=== PATIENT | male | born 1940 | race Caucasian/White ===

== ENCOUNTER 2021-01-26 21:07 | Inpatient (IN) ==
[2021-01-26] MEDS ORDERED: *HR* Heparin 5,000 UNIT/ML VIAL IVP PRN ×2 (23:22)
[2021-01-26] MEDS: Heparin 25,000UNIT/250ML 1/2NS 25,000 UNIT/250 ML IV.SOLN IVC SCH (23:46)
[2021-01-26] MEDS ORDERED: methylPREDNISolone 125 MG/2 ML VIAL IVP ONE (23:53)
[2021-01-27] MEDS ORDERED: Naloxone 0.4 MG/ML INJ IVP PRN (00:08)
[2021-01-27] MEDS: Levalbuterol Neb 1.25 MG/3 ML IH SCH ×6 (00:11→20:02)
[2021-01-27] MEDS: Azithromycin 500 MG in 0.9 % Sodium Chloride 250 ML IVPB SCH ×2 (00:20→23:11)
[2021-01-27 00:31] LABS: INR 1.4; Prothrombin Time 15.6 Seconds (9.4-12.1)
[2021-01-27 00:33] LABS: Activated Partial Thrombo Time 77.6 Seconds (26.0-36.0)
[2021-01-27 01:06] LABS: Hematocrit 46.6 % (37.5-50.1); Hemoglobin 15.5 g/dL (12.9-16.9); Mean Corpuscular HGB Conc 33.3 g/dL (31.6-35.5); Mean Corpuscular Hemoglobin 33.1 pg (28.0-33.3); Mean Corpuscular Volume 99.6 fL (83.0-100.0); Mean Platelet Volume 11.1 fL (9.4-12.4); Platelet Count 197 K/mcL (140-400); Red Blood Count 4.68 M/mcL (4.19-5.50); Red Cell Distribution Width 14.1 % (11.5-14.5)
[2021-01-27 01:15] LABS: BUN/Creatinine Ratio 25 (6-26); Blood Urea Nitrogen 33 mg/dL (8-23); Calcium 8.3 mg/dL (8.6-10.3); Carbon Dioxide 25 mEq/L (23-29); Chloride 106 mEq/L (98-107); Chol/HDL Ratio 1.8 (0-4.9); Cholesterol 89 mg/dL (< 200); Glucose 122 mg/dL (70-105); HDL Cholesterol 50 mg/dL (40-59); LDL Cholesterol,Calculated 32 mg/dL (< 100); Magnesium 1.6 mg/dL (1.6-2.6); Osmolality,Calculated 297 (280-300); Potassium 4.4 mEq/L (3.5-5.1); Sodium 139 mEq/L (136-145); Triglycerides 37 mg/dL (< 150); eGFR For African Americans > 60 (> 60); eGFR For Non-African Americans 51 (> 60)
[2021-01-27 01:20] LABS: Estimated Average Glucose 111 mg/dl; Hemoglobin A1C 5.5 %
[2021-01-27 01:39] LABS: ABG Base Excess -1 mEq/L (-2 to 3); ABG HCO3 24 mEq/L (21-27); ABG Oxygen Saturation 98 % (95-98); ABG PCO2 39 mmHg (35-45); ABG PO2 98 mmHg (85-104); ABG TCO2 25 mEq/L (20-26)
[2021-01-27 03:10] LABS: Bilirubin,Urine Small (Negative); Blood,Urine Negative (Negative); Clarity,Urine Clear (Clear); Color,Urine Dark-Yellow (Yellow); Glucose,Urine (UA) Normal (Normal); Hyaline Casts,Urine Few per lpf (None Seen); Ketones,Urine Trace mg/dL (Negative); Leukocyte Esterase,Urine Negative (Negative); Mucus,Urine Few per lpf (None-Few); Nitrite,Urine Negative (Negative); PH,Urine 5.5 pH Units (5.0-8.0); Protein,Urine 30 mg/dL (Neg-Trace); Specific Gravity,Urine > 1.030 (1.010-1.025); Squamous Epithelial Cell,Urine Few per hpf (None-Few)
[2021-01-27] MEDS: Budesonide/Formoterol 160/4.5 1 PUFF INH IH SCH ×2 (07:36→20:02)
[2021-01-27] MEDS ORDERED: MethylPREDNISolone 40 MG/ML VIAL IVP SCH (08:00)
[2021-01-27] MEDS: atenoloL 50 MG TABLET PO SCH (08:04)
[2021-01-27] MEDS: Aspirin Enteric Coated 81 MG Tablet PO SCH (08:04)
[2021-01-27] MEDS: hydroCHLOROthiazide 25 MG TABLET PO SCH (08:04)
[2021-01-27] MEDS ORDERED: FINASTERIDE 1 MG PO SCH (09:00)
[2021-01-27] MEDS ORDERED: Perflutren Lipid Microsphere 1.3 ML in 0.9 % Sodium Chloride 8.7 ML IVP PRN (14:06)
[2021-01-27] MEDS ORDERED: Albumin 25% 25gram/100mL 25 GM/100 ML IV.SOLN IVPB ONE (18:56)
[2021-01-27] MEDS ORDERED: Furosemide 40 MG/4 ML VIAL IVP ONE (18:57)
[2021-01-27] MEDS: Heparin 25,000UNIT/250ML 1/2NS 25,000 UNIT/250 ML IV.SOLN IVC SCH (23:50)
[2021-01-28] MEDS: Levalbuterol Neb 1.25 MG/3 ML IH SCH ×4 (00:09→10:23)
[2021-01-28 03:13] LABS: Hematocrit 40.5 % (37.5-50.1); Mean Corpuscular HGB Conc 32.8 g/dL (31.6-35.5); Mean Corpuscular Hemoglobin 32.8 pg (28.0-33.3); Mean Platelet Volume 11.4 fL (9.4-12.4); Platelet Count 177 K/mcL (140-400); Red Blood Count 4.05 M/mcL (4.19-5.50); Red Cell Distribution Width 13.9 % (11.5-14.5); White Blood Count 13.5 K/mcL (4.3-11.1)
[2021-01-28 03:17] LABS: Hemoglobin 13.3 g/dL (12.9-16.9)
[2021-01-28 03:32] LABS: BUN/Creatinine Ratio 38 (6-26); Blood Urea Nitrogen 48 mg/dL (8-23); Calcium 8.5 mg/dL (8.6-10.3); Carbon Dioxide 27 mEq/L (23-29); Chloride 104 mEq/L (98-107); Glucose 112 mg/dL (70-105); Osmolality,Calculated 307 (280-300); Potassium 3.4 mEq/L (3.5-5.1); Sodium 142 mEq/L (136-145); eGFR For African Americans > 60 (> 60); eGFR For Non-African Americans 55 (> 60)
[2021-01-28 06:31] VITALS: PULSE 71; TEMP 97.8
[2021-01-28] MEDS ORDERED: Ergocalciferol (VIT D2) 50,000 UNIT (1.25MG) CAP PO SCH (07:15)
[2021-01-28] MEDS: hydroCHLOROthiazide 25 MG TABLET PO SCH (08:05)
[2021-01-28] MEDS: atenoloL 50 MG TABLET PO SCH (08:06)
[2021-01-28] MEDS: Aspirin Enteric Coated 81 MG Tablet PO SCH (08:06)
[2021-01-28 08:22] VITALS: BP 116/70
[2021-01-28] MEDS ORDERED: methylPREDNISolone 4 MG TABLET PO SCH (09:00)
[2021-01-28] MEDS ORDERED: predniSONE 20 MG TABLET PO SCH (09:00)
[2021-01-28] MEDS ORDERED: Finasteride 5 MG TABLET PO SCH (09:00)
[2021-01-28] MEDS: Budesonide/Formoterol 160/4.5 1 PUFF INH IH SCH (10:21)
[2021-01-28 11:52] VITALS: O2SAT 99
== END 2021-01-28 13:32 | disposition home or self-care (01) | DRG 280 ==
LOC: 2ANU → SUATTDRO 22:49
PROVIDERS: ADMIT Student in an Organized Health Care Education/Training Program; ATTEND Family Medicine

== ENCOUNTER 2021-07-21 10:03 | Inpatient (IN) ==
[2021-07-21] MEDS ORDERED: Ondansetron 4 MG/2 ML VIAL IVP PRN (13:01)
[2021-07-21] MEDS ORDERED: Melatonin 3 MG TABLET PO PRN (13:01)
[2021-07-21] MEDS ORDERED: Naloxone 0.4 MG/ML INJ IVP PRN (13:01)
[2021-07-21] MEDS ORDERED: Nitroglycerin 0.4 MG TAB.SUBL SL PRN (13:24)
[2021-07-21] MEDS ORDERED: *HR* Heparin 5,000 UNIT/ML VIAL IVP ONE (13:45)
[2021-07-21] MEDS ORDERED: *HR* Heparin 5,000 UNIT/ML VIAL IVP PRN (13:45)
[2021-07-21] MEDS: Azithromycin 250 MG TABLET PO SCH (14:30)
[2021-07-21] MEDS: Metoprolol XL (24 HR) Succ 25 MG TAB.ER.24H PO SCH (14:31)
[2021-07-21] MEDS: Finasteride 5 MG TABLET PO SCH (14:31)
[2021-07-21 14:55] LABS: Basophils % 0.1 %; Hematocrit 45.3 % (37.5-50.1); Hemoglobin 15.2 g/dL (12.9-16.9); Immature Granulocytes % 0.3 % (0-4); Lymphocytes # 0.5 K/mcL (0.6-4.6); Lymphocytes % 5.5 %; Mean Corpuscular HGB Conc 33.6 g/dL (31.6-35.5); Mean Corpuscular Hemoglobin 33.8 pg (28.0-33.3); Mean Corpuscular Volume 100.7 fL (83.0-100.0); Mean Platelet Volume 10.7 fL (9.4-12.4); Monocytes # 0.1 K/mcL (0.0-1.3); Monocytes % 0.7 %; Neutrophils # 8.3 K/mcL (1.6-8.9); Platelet Count 152 K/mcL (140-400); Red Cell Distribution Width 13.2 % (11.5-14.5); Segmented Neutrophils % 93.4 %; White Blood Count 8.9 K/mcL (4.3-11.1)
[2021-07-21] MEDS: Heparin 25,000UNIT/250ML 1/2NS 25,000 UNIT/250 ML IV.SOLN IVC SCH (15:05)
[2021-07-21] MEDS: MethylPREDNISolone 40 MG/ML VIAL IVP SCH (15:06)
[2021-07-21 15:09] LABS: BUN/Creatinine Ratio 28 (6-26); Blood Urea Nitrogen 30 mg/dL (8-23); Carbon Dioxide 29 mEq/L (23-29); Chloride 105 mEq/L (98-107); Glucose 107 mg/dL (70-105); Magnesium 1.6 mg/dL (1.6-2.6); Osmolality,Calculated 299 (280-300); Phosphorous 3.6 mg/dL (2.7-4.5); Potassium 4.8 mEq/L (3.5-5.1); Sodium 141 mEq/L (136-145); eGFR For African Americans > 60 (> 60); eGFR For Non-African Americans > 60 (> 60)
[2021-07-21 15:14] LABS: Troponin I 0.48 ng/mL (< 0.04)
[2021-07-21 15:34] LABS: Heparin anti-factor XA UFH 0.58 IU/mL (0.30-0.70)
[2021-07-21 15:35] LABS: INR 1.2; Prothrombin Time 13.3 Seconds (9.4-12.1)
[2021-07-21] MEDS: Ipratropium/Albuterol Neb 3 ML IH SCH ×3 (15:48→23:29)
[2021-07-21 16:59] LABS: Bilirubin,Urine Negative (Negative); Blood,Urine Trace (Negative); Clarity,Urine Clear (Clear); Color,Urine Yellow (Yellow); Glucose,Urine (UA) Normal (Normal); Hyaline Casts,Urine Few per lpf (None Seen); Ketones,Urine 20 mg/dL (Negative); Leukocyte Esterase,Urine Negative (Negative); Mucus,Urine Few per lpf (None-Few); Nitrite,Urine Negative (Negative); PH,Urine 5.5 pH Units (5.0-8.0); Protein,Urine 30 mg/dL (Neg-Trace); Specific Gravity,Urine 1.026 (1.010-1.025); Urobilinogen,Urine Normal (Normal); WBC,Urine 0-3 per hpf (0-3)
[2021-07-21] MEDS: Budesonide/Formoterol 160/4.5 1 PUFF INH IH SCH (20:11)
[2021-07-22] MEDS: MethylPREDNISolone 40 MG/ML VIAL IVP SCH ×2 (02:31→09:56)
[2021-07-22] MEDS: Ipratropium/Albuterol Neb 3 ML IH SCH ×6 (04:33→23:46)
[2021-07-22] MEDS: Budesonide/Formoterol 160/4.5 1 PUFF INH IH SCH ×2 (07:46→19:47)
[2021-07-22 09:46] LABS: Basophils % 0.2 %; Hematocrit 42.8 % (37.5-50.1); Hemoglobin 14.8 g/dL (12.9-16.9); Immature Granulocytes % 0.6 % (0-4); Lymphocytes # 0.7 K/mcL (0.6-4.6); Lymphocytes % 3.2 %; Mean Corpuscular HGB Conc 34.6 g/dL (31.6-35.5); Mean Corpuscular Hemoglobin 34.3 pg (28.0-33.3); Mean Corpuscular Volume 99.3 fL (83.0-100.0); Mean Platelet Volume 10.6 fL (9.4-12.4); Monocytes # 0.8 K/mcL (0.0-1.3); Monocytes % 3.6 %; Neutrophils # 19.2 K/mcL (1.6-8.9); Platelet Count 176 K/mcL (140-400); Red Blood Count 4.31 M/mcL (4.19-5.50); Segmented Neutrophils % 92.4 %
[2021-07-22 09:49] LABS: White Blood Count 20.8 K/mcL (4.3-11.1)
[2021-07-22] MEDS: hydroCHLOROthiazide 25 MG TABLET PO SCH (09:56)
[2021-07-22] MEDS: Metoprolol XL (24 HR) Succ 25 MG TAB.ER.24H PO SCH (09:56)
[2021-07-22] MEDS: Azithromycin 250 MG TABLET PO SCH (09:56)
[2021-07-22] MEDS: Finasteride 5 MG TABLET PO SCH (09:56)
[2021-07-22] MEDS: lisinopriL 20 MG TABLET PO SCH (09:56)
[2021-07-22 10:06] LABS: BUN/Creatinine Ratio 36 (6-26); Blood Urea Nitrogen 37 mg/dL (8-23); Calcium 8.8 mg/dL (8.6-10.3); Carbon Dioxide 27 mEq/L (23-29); Chloride 105 mEq/L (98-107); Glucose 131 mg/dL (70-105); Osmolality,Calculated 300 (280-300); Potassium 3.7 mEq/L (3.5-5.1); Sodium 140 mEq/L (136-145); eGFR For African Americans > 60 (> 60); eGFR For Non-African Americans > 60 (> 60)
[2021-07-22] MEDS: Heparin 25,000UNIT/250ML 1/2NS 25,000 UNIT/250 ML IV.SOLN IVC SCH (10:23)
[2021-07-22] MEDS: *HR* Heparin 5,000 UNIT/ML VIAL IVP PRN (10:25)
[2021-07-22] MEDS ORDERED: Perflutren Lipid Microsphere 1.3 ML in 0.9 % Sodium Chloride 8.7 ML IVP PRN (14:07)
[2021-07-22 14:39] LABS: Troponin I 0.16 ng/mL (< 0.04)
[2021-07-22] MEDS: Aspirin Enteric Coated 81 MG Tablet PO SCH (15:04)
[2021-07-22] MEDS: Metoprolol XL (24 HR) Succ 50 MG TAB.ER.24H PO SCH (20:15)
[2021-07-23 01:21] LABS: Hematocrit 42.1 % (37.5-50.1); Hemoglobin 14.3 g/dL (12.9-16.9); Mean Corpuscular Hemoglobin 33.8 pg (28.0-33.3); Mean Corpuscular Volume 99.5 fL (83.0-100.0); Platelet Count 177 K/mcL (140-400); Red Blood Count 4.23 M/mcL (4.19-5.50); Red Cell Distribution Width 13.2 % (11.5-14.5); White Blood Count 22.9 K/mcL (4.3-11.1)
[2021-07-23 01:34] LABS: BUN/Creatinine Ratio 36 (6-26); Blood Urea Nitrogen 41 mg/dL (8-23); Calcium 8.8 mg/dL (8.6-10.3); Carbon Dioxide 29 mEq/L (23-29); Chloride 102 mEq/L (98-107); Glucose 131 mg/dL (70-105); Magnesium 1.8 mg/dL (1.6-2.6); Osmolality,Calculated 298 (280-300); Phosphorous 2.9 mg/dL (2.7-4.5); Potassium 3.8 mEq/L (3.5-5.1); Sodium 138 mEq/L (136-145); eGFR For African Americans > 60 (> 60); eGFR For Non-African Americans > 60 (> 60)
[2021-07-23] MEDS: *HR* Heparin 5,000 UNIT/ML VIAL IVP PRN (01:54)
[2021-07-23] MEDS: MethylPREDNISolone 40 MG/ML VIAL IVP SCH ×2 (02:42→12:48)
[2021-07-23] MEDS ORDERED: methylPREDNISolone 40 MG in 0.9 % Sodium Chloride 50 ML IVP SCH (03:00)
[2021-07-23] MEDS: Ipratropium/Albuterol Neb 3 ML IH SCH ×4 (04:18→15:46)
[2021-07-23 07:18] VITALS: TEMP 97.7
[2021-07-23] MEDS: Budesonide/Formoterol 160/4.5 1 PUFF INH IH SCH (07:40)
[2021-07-23] MEDS: Azithromycin 250 MG TABLET PO SCH (08:26)
[2021-07-23] MEDS: Aspirin Enteric Coated 81 MG Tablet PO SCH (08:26)
[2021-07-23] MEDS: Metoprolol XL (24 HR) Succ 50 MG TAB.ER.24H PO SCH (08:26)
[2021-07-23] MEDS: lisinopriL 20 MG TABLET PO SCH (08:26)
[2021-07-23] MEDS: Finasteride 5 MG TABLET PO SCH (08:26)
[2021-07-23] MEDS: hydroCHLOROthiazide 25 MG TABLET PO SCH (08:26)
[2021-07-23] MEDS: Heparin 25,000UNIT/250ML 1/2NS 25,000 UNIT/250 ML IV.SOLN IVC SCH (09:01)
[2021-07-23 11:42] VITALS: BP 140/59; PULSE 86
[2021-07-23 16:02] VITALS: O2SAT 96
[2021-07-23] MEDS ORDERED: *HR* Heparin 5,000 UNIT/ML VIAL SQ SCH (18:00)
== END 2021-07-23 18:35 | disposition home or self-care (01) | DRG 190 ==
LOC: 2NENU → SUATTDRO 07-22 14:30
PROVIDERS: ADMIT Student in an Organized Health Care Education/Training Program; ATTEND Family Medicine

== ENCOUNTER 2021-12-09 01:40 | Inpatient (IN) ==
[2021-12-09] MEDS ORDERED: Naloxone 0.4 MG/ML INJ IVP PRN (03:58)
[2021-12-09] MEDS ORDERED: methylPREDNISolone 125 MG/2 ML VIAL IVP SCH (04:02)
[2021-12-09] MEDS ORDERED: Artificial Tears SOLN 15 ML BOTTLE BOTH EYES PRN (04:04)
[2021-12-09 04:29] LABS: ABG Base Excess -3 mEq/L (-2 to 3); ABG HCO3 27 mEq/L (21-27); ABG Oxygen Saturation 98 % (95-98); ABG PCO2 67 mmHg (35-45); ABG PH 7.21 pH Units (7.32-7.45); ABG PO2 124 mmHg (85-104); ABG TCO2 29 mEq/L (20-26); Blood Gas VT 400 cc
[2021-12-09] MEDS: Ipratropium/Albuterol Neb 3 ML IH SCH ×4 (04:29→19:53)
[2021-12-09 04:39] LABS: Basophils % 0.2 %; Hematocrit 45.7 % (37.5-50.1); Hemoglobin 14.7 g/dL (12.9-16.9); Immature Granulocytes % 0.8 % (0-4); Lymphocytes # 0.5 K/mcL (0.6-4.6); Lymphocytes % 2.7 %; Mean Corpuscular HGB Conc 32.2 g/dL (31.6-35.5); Mean Corpuscular Hemoglobin 33.4 pg (28.0-33.3); Mean Corpuscular Volume 103.9 fL (83.0-100.0); Mean Platelet Volume 10.2 fL (9.4-12.4); Monocytes # 1.5 K/mcL (0.0-1.3); Monocytes % 7.5 %; Neutrophils # 17.8 K/mcL (1.6-8.9); Platelet Count 185 K/mcL (140-400); Red Cell Distribution Width 13.1 % (11.5-14.5); Segmented Neutrophils % 88.8 %
[2021-12-09] MEDS: FentaNYL (PF) 1,000 MCG/100 ML IV.SOLN IVC SCH ×2 (04:51→22:06)
[2021-12-09 04:58] LABS: Albumin 3.4 g/dL (3.5-5.7); Albumin/Globulin Ratio 1.5 (1.1-2.2); Calcium 8.2 mg/dL (8.6-10.3); Globulin 2.2 g/dL (2.4-3.5); Potassium 4.5 mEq/L (3.5-5.1); Total Protein 5.6 g/dL (6.4-8.9)
[2021-12-09] MEDS ORDERED: *HR* Heparin 5,000 UNIT/ML VIAL IVP PRN ×4 (05:44→16:00)
[2021-12-09] MEDS ORDERED: *HR* Heparin 5,000 UNIT/ML VIAL IVP ONE (05:44)
[2021-12-09] MEDS ORDERED: Heparin 25,000UNIT/250ML 1/2NS 25,000 UNIT/250 ML IV.SOLN IVC SCH (05:45)
[2021-12-09] MEDS ORDERED: *HR* Enoxaparin 40 MG/0.4 ML SYRINGE SQ SCH (06:00)
[2021-12-09] MEDS: Chlorhexidine Rinse 15 ML MOUTHWASH MM SCH ×2 (07:43→20:21)
[2021-12-09] MEDS: Artificial Tears SOLN 15 ML BOTTLE BOTH EYES SCH ×4 (07:43→20:21)
[2021-12-09] MEDS ORDERED: Furosemide 20 MG/2 ML VIAL IVP ONE (08:49)
[2021-12-09 11:34] LABS: Acetaminophen < 10 mcg/mL (10-20); Ethanol < 10 mg/dL (Less than 10); Magnesium 1.7 mg/dL (1.6-2.6); Salicylate < 2.5 mg/dL (15.0-30.0)
[2021-12-09 11:36] LABS: Hepatitis B Surface Antigen Nonreactive (Nonreactive)
[2021-12-09 12:04] LABS: Hepatitis C Virus Antibody Nonreactive (Nonreactive)
[2021-12-09 12:05] LABS: Hepatitis B Core IgM Nonreactive (Nonreactive)
[2021-12-09 12:06] LABS: Hepatitis A Antibody IgM Nonreactive (Nonreactive)
[2021-12-09] MEDS: Pantoprazole 40 MG VIAL IVP SCH (12:11)
[2021-12-09] MEDS: Aspirin 81 MG TAB.CHEW PO SCH (12:11)
[2021-12-09] MEDS ORDERED: Calcium Gluconate 1gm/50mL 1 GM/50 ML BAG IVPB PRN (15:20)
[2021-12-09] MEDS ORDERED: Potassium Phosphate 44 MEQ in 0.9 % Sodium Chloride 250 ML IVPB PRN (15:20)
[2021-12-09 16:04] LABS: VBG Ionized Calcium 1.03 mmol/L (1.15-1.35)
[2021-12-09] MEDS: Heparin 25,000UNIT/250ML 1/2NS 25,000 UNIT/250 ML IV.SOLN IVC SCH (16:31)
[2021-12-09] MEDS: MethylPREDNISolone 40 MG/ML VIAL IVP SCH (16:50)
[2021-12-09] MEDS: Albumin Human 5% 12.5 GM/250 ML IV.SOLN IVC SCH ×2 (16:57→18:22)
[2021-12-09] MEDS ORDERED: Norepinephrine 4 MG/254 ML IV.SOLN IVC ONE (20:51)
[2021-12-09 23:47] LABS: Magnesium 2.2 mg/dL (1.6-2.6); Phosphorous 4.1 mg/dL (2.7-4.5)
[2021-12-10] MEDS: Artificial Tears SOLN 15 ML BOTTLE BOTH EYES SCH ×4 (00:15→07:18)
[2021-12-10] MEDS: MethylPREDNISolone 40 MG/ML VIAL IVP SCH ×3 (00:15→15:44)
[2021-12-10] MEDS ORDERED: Azithromycin 500 MG in 0.9 % Sodium Chloride 250 ML IVPB SCH (02:00)
[2021-12-10 03:48] LABS: Basophils % 0.1 %; Hematocrit 37.5 % (37.5-50.1); Immature Granulocytes % 0.6 % (0-4); Lymphocytes # 0.3 K/mcL (0.6-4.6); Lymphocytes % 2.1 %; Mean Corpuscular HGB Conc 33.9 g/dL (31.6-35.5); Mean Corpuscular Volume 100.3 fL (83.0-100.0); Mean Platelet Volume 10.8 fL (9.4-12.4); Monocytes # 0.8 K/mcL (0.0-1.3); Monocytes % 5.4 %; Neutrophils # 14.2 K/mcL (1.6-8.9); Platelet Count 157 K/mcL (140-400); Red Blood Count 3.74 M/mcL (4.19-5.50); Red Cell Distribution Width 13.2 % (11.5-14.5); Segmented Neutrophils % 91.8 %; White Blood Count 15.5 K/mcL (4.3-11.1)
[2021-12-10 03:49] LABS: Hemoglobin 12.7 g/dL (12.9-16.9)
[2021-12-10] MEDS: Ipratropium/Albuterol Neb 3 ML IH SCH ×2 (03:54→10:24)
[2021-12-10 04:15] LABS: Albumin 3.6 g/dL (3.5-5.7); Bilirubin,Direct 0.1 mg/dL (0.0-0.2); Bilirubin,Indirect 0.5 mg/dL (0.0-1.0); Bilirubin,Total 0.6 mg/dL (0.3-1.0); Calcium 8.3 mg/dL (8.6-10.3); Globulin 1.8 g/dL (2.4-3.5); Magnesium 2.2 mg/dL (1.6-2.6); Phosphorous 4.1 mg/dL (2.7-4.5); Potassium 3.8 mEq/L (3.5-5.1); Total Protein 5.4 g/dL (6.4-8.9); Troponin I 0.69 ng/mL (< 0.04)
[2021-12-10 04:31] LABS: ABG Base Excess 2 mEq/L (-2 to 3); ABG HCO3 27 mEq/L (21-27); ABG Oxygen Saturation 99 % (95-98); ABG PCO2 46 mmHg (35-45); ABG PH 7.39 pH Units (7.32-7.45); ABG PO2 147 mmHg (85-104); ABG TCO2 29 mEq/L (20-26); Blood Gas VT 400 cc
[2021-12-10] MEDS: Pantoprazole 40 MG VIAL IVP SCH (07:19)
[2021-12-10] MEDS: Chlorhexidine Rinse 15 ML MOUTHWASH MM SCH (07:19)
[2021-12-10] MEDS: Aspirin 81 MG TAB.CHEW PO SCH (07:19)
[2021-12-10] MEDS ORDERED: cefTRIAXone 1,000 MG in 0.9 % Sodium Chloride Mini Bag 100 ML IVPB SCH (09:00)
[2021-12-10] MEDS: Albumin Human 5% 12.5 GM/250 ML IV.SOLN IVC SCH ×2 (09:40→13:09)
[2021-12-10 10:08] LABS: Thyroid Stimulating Hormone 0.777 mcIU/mL (0.340-5.600); Triiodothyronine (T3) Free 3.04 pg/mL (2.50-3.90)
[2021-12-10] MEDS ORDERED: Iopamidol - 370 500 ML MLS IVP ONE (10:39)
[2021-12-10] MEDS ORDERED: Metoprolol XL (24 HR) Succ 25 MG TAB.ER.24H PO SCH (11:00)
[2021-12-10] MEDS ORDERED: Budesonide/Formoterol 160/4.5 1 PUFF INH IH SCH (11:15)
[2021-12-10] MEDS ORDERED: Ringers Solution, Lactated 1,000 ML IVC SCH (12:45)
[2021-12-10] MEDS ORDERED: *HR* Metoprolol 5 MG/5 ML VIAL IVP PRN (12:57)
[2021-12-10] MEDS ORDERED: *HR* LORazepam 2 MG/ML VIAL IVP PRN ×6 (13:01→18:02)
[2021-12-10] MEDS: Levalbuterol Neb 1.25 MG/3 ML IH SCH ×3 (15:59→21:09)
[2021-12-10] MEDS ORDERED: Thiamine (B-1) 100 MG, Folic Acid 1 MG, MVI, adult with vitamin K 10 ML in 0.9 % Sodi... IVPB SCH (18:00)
[2021-12-10] MEDS ORDERED: Naloxone 0.4 MG/ML INJ IVP PRN (18:02)
[2021-12-10] MEDS ORDERED: Artificial Tears SOLN 15 ML BOTTLE BOTH EYES PRN (18:02)
[2021-12-10] MEDS ORDERED: *HR* Heparin 5,000 UNIT/ML VIAL IVP PRN ×2 (18:02)
[2021-12-10] MEDS ORDERED: Heparin 25,000UNIT/250ML 1/2NS 25,000 UNIT/250 ML IV.SOLN IVC SCH (18:02)
[2021-12-10] MEDS: Budesonide/Formoterol 160/4.5 1 PUFF INH IH SCH (21:08)
[2021-12-11] MEDS ORDERED: Azithromycin 500 MG in 0.9 % Sodium Chloride 250 ML IVPB SCH (02:00)
[2021-12-11] MEDS: MethylPREDNISolone 40 MG/ML VIAL IVP SCH ×3 (02:11→14:56)
[2021-12-11 03:10] LABS: Basophils % 0.1 %; Hematocrit 38.8 % (37.5-50.1); Immature Granulocytes % 1.4 % (0-4); Lymphocytes # 1.1 K/mcL (0.6-4.6); Lymphocytes % 4.9 %; Mean Corpuscular HGB Conc 33.5 g/dL (31.6-35.5); Mean Corpuscular Hemoglobin 34.5 pg (28.0-33.3); Mean Corpuscular Volume 102.9 fL (83.0-100.0); Mean Platelet Volume 10.9 fL (9.4-12.4); Monocytes # 1.4 K/mcL (0.0-1.3); Monocytes % 6.1 %; Neutrophils # 19.4 K/mcL (1.6-8.9); Platelet Count 180 K/mcL (140-400); Red Blood Count 3.77 M/mcL (4.19-5.50); Red Cell Distribution Width 13.5 % (11.5-14.5); Segmented Neutrophils % 87.5 %; White Blood Count 22.2 K/mcL (4.3-11.1)
[2021-12-11 03:22] LABS: Albumin 4.1 g/dL (3.5-5.7); Albumin/Globulin Ratio 2.2 (1.1-2.2); Bilirubin,Direct 0.2 mg/dL (0.0-0.2); Bilirubin,Indirect 0.4 mg/dL (0.0-1.0); Bilirubin,Total 0.6 mg/dL (0.3-1.0); Calcium 8.6 mg/dL (8.6-10.3); Globulin 1.9 g/dL (2.4-3.5); Magnesium 2.4 mg/dL (1.6-2.6); Phosphorous 3.8 mg/dL (2.7-4.5); Potassium 3.9 mEq/L (3.5-5.1)
[2021-12-11] MEDS: Levalbuterol Neb 1.25 MG/3 ML IH SCH ×2 (03:47→10:38)
[2021-12-11] MEDS: cefTRIAXone 1,000 MG in 0.9 % Sodium Chloride Mini Bag 100 ML IVPB SCH (08:41)
[2021-12-11] MEDS: Aspirin 81 MG TAB.CHEW PO SCH (08:49)
[2021-12-11] MEDS: Docusate Oral Soln 100 MG/10 ML UDC PO SCH (08:49)
[2021-12-11] MEDS: Metoprolol XL (24 HR) Succ 25 MG TAB.ER.24H PO SCH (08:50)
[2021-12-11] MEDS ORDERED: Pantoprazole 40 MG VIAL IVP SCH (09:00)
[2021-12-11] MEDS ORDERED: Docusate Oral Soln 100 MG/10 ML UDC PO SCH (09:00)
[2021-12-11] MEDS: *HR* Metoprolol 5 MG/5 ML VIAL IVP PRN (09:02)
[2021-12-11] MEDS: Budesonide/Formoterol 160/4.5 1 PUFF INH IH SCH ×2 (10:37→22:49)
[2021-12-11] MEDS ORDERED: Nitroglycerin 0.4 MG TAB.SUBL SL PRN (10:45)
[2021-12-11] MEDS: Acetylcysteine 10% 2 ML INHSOL IH SCH ×3 (11:09→22:49)
[2021-12-11] MEDS: lisinopriL 20 MG TABLET PO SCH (14:56)
[2021-12-11] MEDS: Levalbuterol Neb 0.63 MG/3 ML IH SCH ×2 (15:49→22:49)
[2021-12-11] MEDS: Thiamine (B-1) 100 MG, Folic Acid 1 MG, MVI, adult with vitamin K 10 ML in 0.9 % Sodi... IVPB SCH (17:17)
[2021-12-11] MEDS: Heparin 25,000UNIT/250ML 1/2NS 25,000 UNIT/250 ML IV.SOLN IVC SCH (19:54)
[2021-12-12] MEDS: MethylPREDNISolone 40 MG/ML VIAL IVP SCH ×3 (00:36→15:05)
[2021-12-12] MEDS: Acetylcysteine 10% 2 ML INHSOL IH SCH ×4 (04:00→23:05)
[2021-12-12] MEDS: Levalbuterol Neb 0.63 MG/3 ML IH SCH ×4 (04:00→23:06)
[2021-12-12 04:13] LABS: Basophils % 0.1 %; Hemoglobin 11.8 g/dL (12.9-16.9); Immature Granulocytes % 0.7 % (0-4); Lymphocytes # 0.4 K/mcL (0.6-4.6); Lymphocytes % 2.9 %; Mean Corpuscular HGB Conc 32.8 g/dL (31.6-35.5); Mean Corpuscular Hemoglobin 33.5 pg (28.0-33.3); Mean Corpuscular Volume 102.3 fL (83.0-100.0); Mean Platelet Volume 10.8 fL (9.4-12.4); Monocytes # 0.6 K/mcL (0.0-1.3); Monocytes % 4.6 %; Neutrophils # 12.3 K/mcL (1.6-8.9); Platelet Count 146 K/mcL (140-400); Red Blood Count 3.52 M/mcL (4.19-5.50); Red Cell Distribution Width 13.5 % (11.5-14.5); Segmented Neutrophils % 91.7 %; White Blood Count 13.4 K/mcL (4.3-11.1)
[2021-12-12 04:26] LABS: Albumin 3.5 g/dL (3.5-5.7); Albumin/Globulin Ratio 1.8 (1.1-2.2); Bilirubin,Direct 0.1 mg/dL (0.0-0.2); Bilirubin,Indirect 0.3 mg/dL (0.0-1.0); Bilirubin,Total 0.4 mg/dL (0.3-1.0); Calcium 8.6 mg/dL (8.6-10.3); Globulin 1.9 g/dL (2.4-3.5); Magnesium 2.2 mg/dL (1.6-2.6); Phosphorous 2.8 mg/dL (2.7-4.5); Potassium 3.9 mEq/L (3.5-5.1); Total Protein 5.4 g/dL (6.4-8.9)
[2021-12-12] MEDS: cefTRIAXone 1,000 MG in 0.9 % Sodium Chloride Mini Bag 100 ML IVPB SCH (08:05)
[2021-12-12] MEDS: Aspirin 81 MG TAB.CHEW PO SCH (08:11)
[2021-12-12] MEDS: Metoprolol XL (24 HR) Succ 25 MG TAB.ER.24H PO SCH (08:12)
[2021-12-12] MEDS: lisinopriL 20 MG TABLET PO SCH (08:12)
[2021-12-12] MEDS: Finasteride 5 MG TABLET PO SCH (08:12)
[2021-12-12] MEDS: Docusate Oral Soln 100 MG/10 ML UDC PO SCH (08:13)
[2021-12-12] MEDS ORDERED: Azithromycin 250 MG TABLET PO SCH (09:00)
[2021-12-12] MEDS: Budesonide/Formoterol 160/4.5 1 PUFF INH IH SCH ×2 (09:49→23:04)
[2021-12-12] MEDS: Thiamine (B-1) 100 MG, Folic Acid 1 MG, MVI, adult with vitamin K 10 ML in 0.9 % Sodi... IVPB SCH (17:43)
[2021-12-13 02:00] LABS: Basophils % 0.1 %; Hemoglobin 11.6 g/dL (12.9-16.9); Immature Granulocytes % 0.7 % (0-4); Lymphocytes # 0.3 K/mcL (0.6-4.6); Lymphocytes % 2.3 %; Mean Corpuscular HGB Conc 32.2 g/dL (31.6-35.5); Mean Corpuscular Hemoglobin 33.7 pg (28.0-33.3); Mean Corpuscular Volume 104.7 fL (83.0-100.0); Monocytes # 0.7 K/mcL (0.0-1.3); Monocytes % 5.2 %; Neutrophils # 12.3 K/mcL (1.6-8.9); Platelet Count 141 K/mcL (140-400); Red Blood Count 3.44 M/mcL (4.19-5.50); Red Cell Distribution Width 13.3 % (11.5-14.5); Segmented Neutrophils % 91.7 %; White Blood Count 13.5 K/mcL (4.3-11.1)
[2021-12-13 02:20] LABS: Albumin 3.4 g/dL (3.5-5.7); Bilirubin,Direct 0.1 mg/dL (0.0-0.2); Bilirubin,Indirect 0.4 mg/dL (0.0-1.0); Bilirubin,Total 0.5 mg/dL (0.3-1.0); Calcium 8.7 mg/dL (8.6-10.3); Globulin 1.7 g/dL (2.4-3.5); Magnesium 2.1 mg/dL (1.6-2.6); Potassium 4.2 mEq/L (3.5-5.1); Total Protein 5.1 g/dL (6.4-8.9)
[2021-12-13] MEDS: Levalbuterol Neb 0.63 MG/3 ML IH SCH ×4 (04:38→21:32)
[2021-12-13] MEDS: Acetylcysteine 10% 2 ML INHSOL IH SCH ×4 (04:38→21:32)
[2021-12-13] MEDS: *HR* Metoprolol 5 MG/5 ML VIAL IVP PRN (05:13)
[2021-12-13] MEDS ORDERED: Furosemide 20 MG/2 ML VIAL IVP ONE (07:43)
[2021-12-13] MEDS: Docusate Oral Soln 100 MG/10 ML UDC PO SCH (07:50)
[2021-12-13] MEDS: lisinopriL 20 MG TABLET PO SCH (07:51)
[2021-12-13] MEDS: Finasteride 5 MG TABLET PO SCH (07:51)
[2021-12-13] MEDS: Aspirin 81 MG TAB.CHEW PO SCH (07:51)
[2021-12-13] MEDS: predniSONE 20 MG TABLET PO SCH (07:51)
[2021-12-13] MEDS: cefTRIAXone 1,000 MG in 0.9 % Sodium Chloride Mini Bag 100 ML IVPB SCH (07:52)
[2021-12-13] MEDS ORDERED: lisinopriL 20 MG TABLET PO SCH (09:00)
[2021-12-13] MEDS: Azithromycin 200 MG/5 ML UDC PO SCH (09:01)
[2021-12-13] MEDS: Budesonide/Formoterol 160/4.5 1 PUFF INH IH SCH ×2 (09:24→21:30)
[2021-12-13] MEDS: Metoprolol XL (24 HR) Succ 25 MG TAB.ER.24H PO SCH (20:19)
[2021-12-13] MEDS: *HR* Heparin 5,000 UNIT/ML VIAL SQ SCH (22:13)
[2021-12-14] MEDS: Acetylcysteine 10% 2 ML INHSOL IH SCH ×3 (03:25→16:04)
[2021-12-14] MEDS: Levalbuterol Neb 0.63 MG/3 ML IH SCH ×5 (03:25→22:54)
[2021-12-14 05:06] LABS: Basophils % 0.1 %; Hemoglobin 12.2 g/dL (12.9-16.9); Red Cell Distribution Width 13.1 % (11.5-14.5)
[2021-12-14 05:08] LABS: Immature Granulocytes % 0.5 % (0-4); Immature Platelets 6.2 % (1.1-6.1); Lymphocytes # 0.7 K/mcL (0.6-4.6); Lymphocytes % 5.4 %; Mean Corpuscular HGB Conc 32.1 g/dL (31.6-35.5); Mean Corpuscular Hemoglobin 33.3 pg (28.0-33.3); Mean Corpuscular Volume 103.8 fL (83.0-100.0); Monocytes # 1.1 K/mcL (0.0-1.3); Monocytes % 8.7 %; Neutrophils # 10.5 K/mcL (1.6-8.9); Platelet Count 129 K/mcL (140-400); Red Blood Count 3.66 M/mcL (4.19-5.50); Segmented Neutrophils % 85.3 %; White Blood Count 12.3 K/mcL (4.3-11.1)
[2021-12-14 05:27] LABS: Albumin 3.3 g/dL (3.5-5.7); Albumin/Globulin Ratio 1.9 (1.1-2.2); Bilirubin,Direct 0.1 mg/dL (0.0-0.2); Bilirubin,Indirect 0.5 mg/dL (0.0-1.0); Bilirubin,Total 0.6 mg/dL (0.3-1.0); Calcium 8.5 mg/dL (8.6-10.3); Globulin 1.7 g/dL (2.4-3.5); Magnesium 1.9 mg/dL (1.6-2.6); Phosphorous 2.1 mg/dL (2.7-4.5); Potassium 3.9 mEq/L (3.5-5.1)
[2021-12-14] MEDS: *HR* Heparin 5,000 UNIT/ML VIAL SQ SCH ×2 (06:00→13:48)
[2021-12-14] MEDS: Budesonide/Formoterol 160/4.5 1 PUFF INH IH SCH ×2 (07:38→22:54)
[2021-12-14] MEDS: cefTRIAXone 1,000 MG in 0.9 % Sodium Chloride Mini Bag 100 ML IVPB SCH (08:39)
[2021-12-14] MEDS: lisinopriL 20 MG TABLET PO SCH (08:39)
[2021-12-14] MEDS: Docusate Oral Soln 100 MG/10 ML UDC PO SCH (08:40)
[2021-12-14] MEDS: predniSONE 20 MG TABLET PO SCH (08:40)
[2021-12-14] MEDS: Finasteride 5 MG TABLET PO SCH (08:40)
[2021-12-14] MEDS: Aspirin 81 MG TAB.CHEW PO SCH (08:40)
[2021-12-14] MEDS: Metoprolol XL (24 HR) Succ 25 MG TAB.ER.24H PO SCH ×2 (08:40→19:34)
[2021-12-14] MEDS: Azithromycin 200 MG/5 ML UDC PO SCH (10:20)
[2021-12-14] MEDS ORDERED: Sodium Chloride for inhalation 15 ML INHSOL IH SCH (18:15)
[2021-12-14] MEDS ORDERED: *HR* Metoprolol 5 MG/5 ML VIAL IVP STA ×2 (18:18→18:32)
[2021-12-14] MEDS ORDERED: Furosemide 20 MG/2 ML VIAL IVP ONE ×2 (18:20→18:32)
[2021-12-14] MEDS ORDERED: *HR* Metoprolol 5 MG/5 ML VIAL IVP ONE (18:45)
[2021-12-14] MEDS ORDERED: *HR* Heparin 5,000 UNIT/ML VIAL IVP PRN ×2 (19:01)
[2021-12-14] MEDS ORDERED: *HR* Heparin 5,000 UNIT/ML VIAL IVP ONE (19:01)
[2021-12-14] MEDS ORDERED: DilTIAZem 50 MG in 0.9 % Sodium Chloride 40 ML IVC SCH ×2 (19:15→19:30)
[2021-12-14] MEDS ORDERED: Heparin 25,000UNIT/250ML 1/2NS 25,000 UNIT/250 ML IV.SOLN IVC SCH (19:15)
[2021-12-14] MEDS: DilTIAZem 50 MG in 0.9 % Sodium Chloride 40 ML IVC SCH (19:48)
[2021-12-15 02:48] LABS: Basophils % 0.2 %; Eosinophils % 0.2 %; Hematocrit 38.4 % (37.5-50.1); Hemoglobin 12.9 g/dL (12.9-16.9); Immature Granulocytes % 0.5 % (0-4); Lymphocytes # 0.9 K/mcL (0.6-4.6); Lymphocytes % 6.6 %; Mean Corpuscular HGB Conc 33.6 g/dL (31.6-35.5); Mean Corpuscular Hemoglobin 33.9 pg (28.0-33.3); Mean Corpuscular Volume 101.1 fL (83.0-100.0); Mean Platelet Volume 11.3 fL (9.4-12.4); Monocytes # 1.2 K/mcL (0.0-1.3); Monocytes % 8.9 %; Neutrophils # 11.1 K/mcL (1.6-8.9); Platelet Count 142 K/mcL (140-400); Red Cell Distribution Width 12.9 % (11.5-14.5); Segmented Neutrophils % 83.6 %; White Blood Count 13.3 K/mcL (4.3-11.1)
[2021-12-15 03:12] LABS: Albumin 3.3 g/dL (3.5-5.7); Albumin/Globulin Ratio 2.1 (1.1-2.2); Bilirubin,Direct 0.1 mg/dL (0.0-0.2); Bilirubin,Indirect 0.6 mg/dL (0.0-1.0); Bilirubin,Total 0.7 mg/dL (0.3-1.0); Calcium 8.3 mg/dL (8.6-10.3); Globulin 1.6 g/dL (2.4-3.5); Magnesium 1.8 mg/dL (1.6-2.6); Total Protein 4.9 g/dL (6.4-8.9)
[2021-12-15] MEDS: DilTIAZem 50 MG in 0.9 % Sodium Chloride 40 ML IVC SCH (04:11)
[2021-12-15] MEDS: Levalbuterol Neb 0.63 MG/3 ML IH SCH ×4 (04:22→20:20)
[2021-12-15] MEDS: lisinopriL 20 MG TABLET PO SCH (09:00)
[2021-12-15] MEDS: predniSONE 20 MG TABLET PO SCH (09:36)
[2021-12-15] MEDS: Metoprolol XL (24 HR) Succ 25 MG TAB.ER.24H PO SCH ×2 (09:36→20:45)
[2021-12-15] MEDS: Finasteride 5 MG TABLET PO SCH (09:36)
[2021-12-15] MEDS: Aspirin 81 MG TAB.CHEW PO SCH (09:36)
[2021-12-15] MEDS ORDERED: Azithromycin 250 MG TABLET PO ONE (09:37)
[2021-12-15] MEDS ORDERED: Furosemide 40 MG/4 ML VIAL IVP ONE (09:38)
[2021-12-15] MEDS: cefTRIAXone 1,000 MG in 0.9 % Sodium Chloride Mini Bag 100 ML IVPB SCH (09:38)
[2021-12-15] MEDS: Budesonide/Formoterol 160/4.5 1 PUFF INH IH SCH ×2 (09:53→20:21)
[2021-12-15] MEDS: Docusate Oral Soln 100 MG/10 ML UDC PO SCH (13:18)
[2021-12-15] MEDS ORDERED: Magnesium Sulfate 1 GM/102 ML PIGGYBACK IVPB ONE (13:34)
[2021-12-15] MEDS: Ipratropium/Albuterol Neb 3 ML IH SCH ×2 (15:30→20:20)
[2021-12-15] MEDS: *HR* Heparin 5,000 UNIT/ML VIAL SQ SCH (17:57)
[2021-12-16 04:53] LABS: Basophils % 0.1 %; Eosinophils % 0.1 %; Hematocrit 38.5 % (37.5-50.1); Hemoglobin 12.9 g/dL (12.9-16.9); Immature Granulocytes % 0.5 % (0-4); Lymphocytes # 0.9 K/mcL (0.6-4.6); Lymphocytes % 6.8 %; Mean Corpuscular HGB Conc 33.5 g/dL (31.6-35.5); Mean Corpuscular Hemoglobin 33.5 pg (28.0-33.3); Mean Platelet Volume 11.2 fL (9.4-12.4); Monocytes # 1.1 K/mcL (0.0-1.3); Monocytes % 8.7 %; Neutrophils # 10.7 K/mcL (1.6-8.9); Platelet Count 165 K/mcL (140-400); Red Blood Count 3.85 M/mcL (4.19-5.50); Red Cell Distribution Width 12.6 % (11.5-14.5); Segmented Neutrophils % 83.8 %; White Blood Count 12.7 K/mcL (4.3-11.1)
[2021-12-16 05:33] LABS: Albumin 3.2 g/dL (3.5-5.7); Albumin/Globulin Ratio 1.6 (1.1-2.2); Bilirubin,Direct 0.1 mg/dL (0.0-0.2); Bilirubin,Indirect 0.6 mg/dL (0.0-1.0); Bilirubin,Total 0.7 mg/dL (0.3-1.0); Calcium 8.5 mg/dL (8.6-10.3); Magnesium 1.9 mg/dL (1.6-2.6); Potassium 4.3 mEq/L (3.5-5.1); Total Protein 5.2 g/dL (6.4-8.9)
[2021-12-16] MEDS: *HR* Heparin 5,000 UNIT/ML VIAL SQ SCH ×2 (06:20→17:49)
[2021-12-16] MEDS: Budesonide/Formoterol 160/4.5 1 PUFF INH IH SCH ×2 (07:31→20:14)
[2021-12-16] MEDS ORDERED: *HR* Dextrose 50 % in Water (Syg) 50 ML SYRINGE ONE (07:38)
[2021-12-16] MEDS: lisinopriL 20 MG TABLET PO SCH (07:57)
[2021-12-16] MEDS: Metoprolol XL (24 HR) Succ 25 MG TAB.ER.24H PO SCH (07:57)
[2021-12-16] MEDS: Aspirin 81 MG TAB.CHEW PO SCH (07:57)
[2021-12-16] MEDS: Furosemide 20 MG TABLET PO SCH (07:58)
[2021-12-16] MEDS: Docusate Oral Soln 100 MG/10 ML UDC PO SCH (07:58)
[2021-12-16] MEDS: Finasteride 5 MG TABLET PO SCH (07:58)
[2021-12-16] MEDS: predniSONE 20 MG TABLET PO SCH (07:58)
[2021-12-16] MEDS: cefTRIAXone 1,000 MG in 0.9 % Sodium Chloride Mini Bag 100 ML IVPB SCH (07:58)
[2021-12-16] MEDS ORDERED: D5% in Water 1,000 ML IVC PRN (08:32)
[2021-12-16] MEDS ORDERED: *HR* Dextrose 50 % in Water (Syg) 50 ML SYRINGE IVP PRN (08:32)
[2021-12-16] MEDS ORDERED: Dextrose Gel 15 GM/37.5 ML TUBE PO PRN ×2 (08:32)
[2021-12-16] MEDS ORDERED: Acetylcysteine 10% 2 ML INHSOL IH SCH (10:15)
[2021-12-16] MEDS: Ipratropium/Albuterol Neb 3 ML IH SCH ×5 (10:30→23:43)
[2021-12-16] MEDS: Acetylcysteine 10% 2 ML INHSOL IH SCH ×5 (10:30→23:43)
[2021-12-16] MEDS ORDERED: acetaZOLAMIDE 250 MG in Water for inj. (sterile) 2.5 ML IVP ONE (14:31)
[2021-12-16] MEDS ORDERED: Metoprolol XL (24 HR) Succ 50 MG TAB.ER.24H PO SCH (21:00)
[2021-12-17 02:54] LABS: Hematocrit 46.9 % (37.5-50.1); Mean Corpuscular HGB Conc 32.8 g/dL (31.6-35.5); Mean Corpuscular Hemoglobin 33.1 pg (28.0-33.3); Mean Corpuscular Volume 100.9 fL (83.0-100.0); Mean Platelet Volume 11.7 fL (9.4-12.4); Platelet Count 184 K/mcL (140-400); Red Blood Count 4.65 M/mcL (4.19-5.50); Red Cell Distribution Width 12.5 % (11.5-14.5); White Blood Count 16.2 K/mcL (4.3-11.1)
[2021-12-17 03:00] LABS: Hemoglobin 15.4 g/dL (12.9-16.9)
[2021-12-17 03:25] LABS: Albumin 3.3 g/dL (3.5-5.7); Albumin/Globulin Ratio 1.6 (1.1-2.2); Bilirubin,Direct 0.1 mg/dL (0.0-0.2); Bilirubin,Indirect 0.5 mg/dL (0.0-1.0); Bilirubin,Total 0.6 mg/dL (0.3-1.0); Calcium 8.7 mg/dL (8.6-10.3); Globulin 2.1 g/dL (2.4-3.5); Magnesium 1.8 mg/dL (1.6-2.6); Potassium 4.3 mEq/L (3.5-5.1); Total Protein 5.4 g/dL (6.4-8.9)
[2021-12-17] MEDS: Acetylcysteine 10% 2 ML INHSOL IH SCH ×6 (04:20→22:31)
[2021-12-17] MEDS: Ipratropium/Albuterol Neb 3 ML IH SCH ×6 (04:20→22:31)
[2021-12-17] MEDS: *HR* Heparin 5,000 UNIT/ML VIAL SQ SCH ×2 (05:32→17:31)
[2021-12-17] MEDS: Budesonide/Formoterol 160/4.5 1 PUFF INH IH SCH ×2 (07:30→19:50)
[2021-12-17] MEDS: Finasteride 5 MG TABLET PO SCH (09:45)
[2021-12-17] MEDS: Aspirin 81 MG TAB.CHEW PO SCH (09:45)
[2021-12-17] MEDS: lisinopriL 20 MG TABLET PO SCH (09:46)
[2021-12-17] MEDS: predniSONE 20 MG TABLET PO SCH (09:46)
[2021-12-17] MEDS: Docusate Oral Soln 100 MG/10 ML UDC PO SCH (09:46)
[2021-12-17] MEDS: Furosemide 20 MG TABLET PO SCH (09:46)
[2021-12-18] MEDS ORDERED: Nitroglycerin 0.4 MG TAB.SUBL SL PRN (03:15)
[2021-12-18] MEDS ORDERED: D5% in Water 1,000 ML IVC PRN (03:15)
[2021-12-18] MEDS ORDERED: Artificial Tears SOLN 15 ML BOTTLE BOTH EYES PRN (03:15)
[2021-12-18] MEDS ORDERED: Naloxone 0.4 MG/ML INJ IVP PRN (03:15)
[2021-12-18] MEDS ORDERED: *HR* Dextrose 50 % in Water (Syg) 50 ML SYRINGE IVP PRN (03:15)
[2021-12-18] MEDS ORDERED: *HR* Metoprolol 5 MG/5 ML VIAL IVP PRN (03:15)
[2021-12-18] MEDS ORDERED: Dextrose Gel 15 GM/37.5 ML TUBE PO PRN ×2 (03:15)
[2021-12-18] MEDS: Ipratropium/Albuterol Neb 3 ML IH SCH ×5 (04:28→20:08)
[2021-12-18] MEDS: Acetylcysteine 10% 2 ML INHSOL IH SCH ×5 (04:28→20:09)
[2021-12-18] MEDS: *HR* Heparin 5,000 UNIT/ML VIAL SQ SCH ×2 (06:10→18:11)
[2021-12-18 06:35] LABS: Hematocrit 43.9 % (37.5-50.1); Hemoglobin 14.7 g/dL (12.9-16.9); Mean Corpuscular HGB Conc 33.5 g/dL (31.6-35.5); Mean Corpuscular Hemoglobin 33.2 pg (28.0-33.3); Mean Corpuscular Volume 99.1 fL (83.0-100.0); Mean Platelet Volume 10.7 fL (9.4-12.4); Platelet Count 210 K/mcL (140-400); Red Blood Count 4.43 M/mcL (4.19-5.50); Red Cell Distribution Width 12.7 % (11.5-14.5); White Blood Count 22.7 K/mcL (4.3-11.1)
[2021-12-18 06:55] LABS: Magnesium 1.7 mg/dL (1.6-2.6)
[2021-12-18] MEDS: Budesonide/Formoterol 160/4.5 1 PUFF INH IH SCH ×2 (07:38→20:07)
[2021-12-18] MEDS: Docusate Oral Soln 100 MG/10 ML UDC PO SCH (09:15)
[2021-12-18] MEDS: Aspirin 81 MG TAB.CHEW PO SCH (09:15)
[2021-12-18] MEDS: lisinopriL 20 MG TABLET PO SCH (09:15)
[2021-12-18] MEDS: predniSONE 20 MG TABLET PO SCH (09:16)
[2021-12-18] MEDS: Furosemide 20 MG TABLET PO SCH (09:16)
[2021-12-18] MEDS: Finasteride 5 MG TABLET PO SCH (09:16)
[2021-12-18] MEDS ORDERED: Morphine Sulfate Oral CONC 10 MG/0.5 ML ORAL.SYG SL PRN (11:12)
[2021-12-18] MEDS: Metoprolol XL (24 HR) Succ 50 MG TAB.ER.24H PO SCH (21:57)
[2021-12-19] MEDS: Acetylcysteine 10% 2 ML INHSOL IH SCH ×7 (00:02→23:08)
[2021-12-19] MEDS: Ipratropium/Albuterol Neb 3 ML IH SCH ×7 (00:02→23:08)
[2021-12-19] MEDS: *HR* Heparin 5,000 UNIT/ML VIAL SQ SCH ×2 (06:04→17:42)
[2021-12-19] MEDS: Budesonide/Formoterol 160/4.5 1 PUFF INH IH SCH ×2 (07:18→20:30)
[2021-12-19] MEDS: predniSONE 20 MG TABLET PO SCH (10:06)
[2021-12-19] MEDS: Furosemide 20 MG TABLET PO SCH (10:06)
[2021-12-19] MEDS: Aspirin 81 MG TAB.CHEW PO SCH (10:06)
[2021-12-19] MEDS: lisinopriL 20 MG TABLET PO SCH (10:07)
[2021-12-19] MEDS: Finasteride 5 MG TABLET PO SCH (10:07)
[2021-12-19] MEDS: Metoprolol XL (24 HR) Succ 50 MG TAB.ER.24H PO SCH ×2 (10:07→21:37)
[2021-12-19] MEDS: Docusate Oral Soln 100 MG/10 ML UDC PO SCH ×2 (10:07→10:16)
[2021-12-19 19:06] LABS: Adenovirus Not Detected (Not Detect); Bordetella Pertussis Not Detected (Not Detect); Chlamydophila pneumoniae Not Detected (Not Detect); Coronavirus 229E Not Detected (Not Detect); Coronavirus HKU1 Not Detected (Not Detect); Coronavirus NL63 Not Detected (Not Detect); Coronavirus OC43 Not Detected (Not Detect); Human Metapneumovirus Not Detected (Not Detect); Human Rhinovirus/Enterovirus Not Detected (Not Detect); Influenza A Subtype 2009 H1 Not Detected (Not Detect); Influenza B Not Detected (Not Detect); Mycoplasma pneumoniae Not Detected (Not Detect); Parainfluenza Virus 1 Not Detected (Not Detect); Parainfluenza Virus 2 Not Detected (Not Detect); Parainfluenza Virus 3 Not Detected (Not Detect); Parainfluenza Virus 4 Not Detected (Not Detect); Respiratory Syncytial Virus Not Detected (Not Detect); SARS-CoV-2 Not Detected (Not Detect)
[2021-12-20] MEDS: Ipratropium/Albuterol Neb 3 ML IH SCH ×3 (03:43→11:58)
[2021-12-20] MEDS: Acetylcysteine 10% 2 ML INHSOL IH SCH ×3 (03:43→11:58)
[2021-12-20] MEDS: *HR* Heparin 5,000 UNIT/ML VIAL SQ SCH (05:49)
[2021-12-20 07:24] VITALS: O2SAT 95
[2021-12-20] MEDS: Metoprolol XL (24 HR) Succ 50 MG TAB.ER.24H PO SCH (09:00)
[2021-12-20] MEDS: Finasteride 5 MG TABLET PO SCH (09:01)
[2021-12-20] MEDS: predniSONE 20 MG TABLET PO SCH (09:01)
[2021-12-20] MEDS: lisinopriL 20 MG TABLET PO SCH (09:01)
[2021-12-20] MEDS: Furosemide 20 MG TABLET PO SCH (09:01)
[2021-12-20] MEDS: Aspirin 81 MG TAB.CHEW PO SCH (09:01)
[2021-12-20] MEDS: Docusate Oral Soln 100 MG/10 ML UDC PO SCH (09:02)
[2021-12-20] MEDS: Budesonide/Formoterol 160/4.5 1 PUFF INH IH SCH (10:12)
[2021-12-20 10:39] VITALS: BP 158/77; PULSE 76; TEMP 98.1
== END 2021-12-20 15:05 | DRG 871 ==
LOC: ICNU → SUATTDRO 03:58 → 2NNU 12-12 16:28 → 3ANU 12-18 03:16
PROVIDERS: ADMIT Internal Medicine; ATTEND Student in an Organized Health Care Education/Training Program